=== PATIENT | female | born 1985 | race Two or more races ===

== ENCOUNTER 2025-01-30 16:43 | Emergency (ER) | payer OTHER ==
[~2025-01-30] VITALS: Ht 172.7 cm; Wt 115.7 kg
[~2025-01-30 16:43] MED LIST: FOLIC ACID1 MG PO; PRENATAL1 TAB PO
[2025-01-30] MEDS ORDERED: DICY20TA PO (16:57)
[2025-01-30] MEDS ORDERED: PRILOSEC OTC20 MG PO (16:57)
[2025-01-30] MEDS ORDERED: CRESTOR40 MG PO (16:58)
[2025-01-30] MEDS ORDERED: DICLOFENAC SODI75 MG PO (17:35)
[2025-01-30] MEDS ORDERED: NORFLEX100MG PO (17:35)
[2025-01-30] MEDS ORDERED: ORPHENADRINE CITRATE 30 MG/ML AMPUL IM ONE (17:45)
[2025-01-30] MEDS ORDERED: DEXAMETHASONE SODIUM PHOSPHATE 4 MG/ML VIAL IM ONE (17:45)
[2025-01-30] MEDS ORDERED: KETOROLAC TROMETHAMINE 60 MG VIAL IM ONE ×2 (17:45→17:46)
[2025-01-30] MEDS ORDERED: ORPHENADRINE CITRATE 30 MG/ML AMPUL ONE (17:46)
[2025-01-30] MEDS ORDERED: DEXAMETHASONE SODIUM PHOSPHATE 4 MG/ML VIAL ONE (17:47)
== END 2025-01-30 17:59 | disposition home or self-care (01) ==
LOC: ER 16:43
DX: M54.50 Low back pain, unspecified (principal); K58.8 Other irritable bowel syndrome

== ENCOUNTER 2025-02-03 11:16 | Emergency (ER) | payer OTHER ==
[~2025-02-03] VITALS: Ht 172.7 cm; Wt 111.1 kg
[~2025-02-03 11:16] MED LIST changes: +CRESTOR40 MG PO; +DICLOFENAC SODI75 MG PO; +DICY20TA PO; +NORFLEX100MG PO; +PRILOSEC OTC20 MG PO
[2025-02-03] MEDS ORDERED: CIPRO500 MG (11:45)
[2025-02-03] MEDS ORDERED: AMITRIPTYLINE H25 MG PO (11:45)
[2025-02-03] MEDS ORDERED: INTESTINEX680 M1 PO (11:45)
[2025-02-03] MEDS ORDERED: FLAGYL I.V500 MG/100 PO (11:46)
[2025-02-03] MEDS ORDERED: METHYLPREDNISOLONE SOD SUCC 40 MG VIAL IM ONE (12:45)
[2025-02-03] MEDS ORDERED: METHYLPREDNISOLONE SOD SUCC 125 MG VIAL ONE (14:08)
[2025-02-03 14:39] LABS: BASO % 0.3 % (0.1-1.2); EOS # 0.08 (0.04-0.54); EOS % 0.6 % (0.7-7.0); LYMPH # 2.29 (1.18-3.74); LYMPH % 16.1 % (19.3-53.1); MEAN PLATELET VOLUME 10.40 fl (9.4-12.4); MONO # 0.98 (0.24-0.82); MONO % 6.9 % (4.7-12.5); NEUT # 10.83 (1.56-6.13); NEUT % 75.8 % (34.0-71.1); RED CELL DISTRIBUTION WIDTH 12.1 % (11.6-14.4)
[2025-02-03 14:50] LABS: ALT/SGPT 34.0 U/L (12-78); AST/SGOT 26.0 U/L (15-37); BILIRUBIN TOTAL 0.69 mg/dL (0.3-1.2); BUN CREA RATIO 10.0 (7.0-25.0); CREATININE SERUM 0.73 mg/dL (0.55-1.02); GFR 88.3; GLOBULINA 4.2 G/DL (2.4-3.5); GLUCOSE FASTING 95.0 mg/dL (65-100); OSMOLALITY SERUM 277.0 MOSM/KG (275-295)
[2025-02-03] MEDS ORDERED: PROBIOTIC1 EAC2 PO (15:15)
[2025-02-03] MEDS ORDERED: LEVSIN/SL0.125 MG SL (15:15)
== END 2025-02-03 15:40 | disposition home or self-care (01) ==
LOC: ER 11:17
PROVIDERS: General Practice
DX: K58.9 Irritable bowel syndrome, unspecified (principal)